=== PATIENT | male | born 1975 | race Caucasian/White ===

== ENCOUNTER 2018-07-15 14:42 | Emergency (ER) | payer BC, MEDICAID ==
[~2018-07-15] VITALS: Ht 180.3 cm; Wt 81.8 kg
[2018-07-15] MEDS ORDERED: ACETAMINOPHEN 500 MG TABLET PO ONE (16:30)
[2018-07-15 17:25] VITALS: BP 135/68
== END 2018-07-15 17:26 | disposition home or self-care (01) ==
LOC: EMS 14:43
DX: S50.351A Superficial foreign body of right elbow, initial encounter (principal); F17.210 Nicotine dependence, cigarettes, uncomplicated; W45.8XXA Other foreign body or object entering through skin, initial encounter; Y93.89 Activity, other specified; Y92.89 Other specified places as the place of occurrence of the external cause; Y99.8 Other external cause status
CPT/HCPCS: 99284; 99406